=== PATIENT | male | born 1950 | race African-American/Black ===

== ENCOUNTER 2018-07-07 14:40 | Inpatient (IN) | payer MEDICARE ==
[~2018-07-07] VITALS: Ht 172.7 cm; Wt 127.0 kg
[2018-07-07] MEDS ORDERED: FUROSEMIDE 20 MG/2 ML VIAL IVP ONE (15:00)
[2018-07-07] MEDS ORDERED: ONDA4TAB8 PO (15:11)
[2018-07-07] MEDS ORDERED: FLUO-120 PO (15:11)
[2018-07-07] MEDS ORDERED: METF500T6 PO (15:11)
[2018-07-07] MEDS ORDERED: CLON0.1T PO (15:11)
[2018-07-07] MEDS ORDERED: DIGO125T PO (15:11)
[2018-07-07] MEDS ORDERED: FUROSEMIDE 20 MG/2 ML VIAL ONE (15:15)
[2018-07-07 15:16] LABS: BASOPHILS % (AUTO) 0.5 % (0.0-2.0); EOSINOPHILS # (AUTO) 0.2 K/uL (0.0-0.7); EOSINOPHILS % (AUTO) 3.4 % (0.0-7.0); HEMATOCRIT 23.4 % (36.7-47.1); LYMPHOCYTES # (AUTO) 0.5 K/uL (20.0-40.0); LYMPHOCYTES % (AUTO) 8.3 % (20.5-51.5); MEAN CORPUSCULAR HGB CONC 30 g/dL (32.5-36.3); MEAN CORPUSCULAR VOLUME 76.6 fL (73.0-96.2); MONOCYTES # (AUTO) 0.5 K/uL (2.0-10.0); MONOCYTES % (AUTO) 8.2 % (0.0-11.0); NEUTROPHILS # (AUTO) 5.2 K/uL (1.8-8.9); NEUTROPHILS % (AUTO) 79.6 % (38.5-71.5); PLATELET COUNT (AUTO) 88 K/uL (152-348); RED BLOOD CELL COUNT(AUTO) 3.05 MIL/uL (4.06-5.63); WHITE BLOOD COUNT (AUTO) 6.6 K/uL (3.6-10.2)
[2018-07-07] MEDS ORDERED: TEMA15CA PO (15:24)
[2018-07-07] MEDS ORDERED: PRED20TA PO (15:24)
[2018-07-07] MEDS ORDERED: PANT40TA4 PO (15:24)
[2018-07-07] MEDS ORDERED: TAMS-3 PO (15:24)
[2018-07-07] MEDS ORDERED: INSU100V7 SQ (15:24)
[2018-07-07] MEDS ORDERED: SPIR50TA5 PO (15:24)
[2018-07-07] MEDS ORDERED: GABA-534 PO (15:24)
[2018-07-07] MEDS ORDERED: HYDR-3980 PO (15:24)
[2018-07-07] MEDS ORDERED: ATOR20TA PO (15:24)
[2018-07-07] MEDS ORDERED: ISOS30TA6 PO (15:24)
--- NOTE | 2018-07-07 15:34 | NUR ---
HANDS OFF REPORT GIVEN TO AZ SALMERONRN
[2018-07-07 15:36] LABS: BILIRUBIN,DIRECT 0.3 mg/dL (0.0-0.2); BILIRUBIN,TOTAL 0.7 mg/dL (0.2-1.0); CREATININE 1.7 mg/dL (0.6-1.3); POTASSIUM 5.2 mmol/L (3.5-5.1); TOTAL PROTEIN, SERUM 6.2 g/dL (6.4-8.2)
[2018-07-07] MEDS ORDERED: INSULIN REGULAR, HUMAN 1,000 UNITS/10 ML VIAL SUBCUT ONE (16:00)
[2018-07-07] MEDS ORDERED: ASPIRIN 325 MG TABLET PO ONE (16:00)
[2018-07-07] MEDS ORDERED: ASPIRIN 325 MG TABLET ONE (16:05)
[2018-07-07] MEDS ORDERED: INSULIN REGULAR, HUMAN 300 UNIT/3 ML VIAL ONE (16:06)
--- NOTE | 2018-07-07 16:10 | NUR ---
Familia azevedo in [facility] - 07/07/18 at 1658 by [id number] PERINEAL HYGIEN PRIVIDED FOR PT. PT VERY RELUCTANT TO BE CLEANED AND COMPLAINED DURING THE PROCESS.
--- NOTE | 2018-07-07 16:10 | NUR ---
PERINEAL HYGIENE PROVIDED FOR PT. PT RELUCTANT TO BE CLEANED.
[2018-07-07 17:00] LABS: BAND % (MANUAL) 1 % (0-10); LYMPHOCYTES % (MANUAL) 7 % (20-40); NEUTROPHILS % (MANUAL) 84 % (42-75)
[2018-07-07 17:01] LABS: EOSINOPHILS % (MANUAL) 2 % (0-8); MONOCYTES % (MANUAL) 6 % (2-10)
--- NOTE | 2018-07-07 17:45 | NUR ---
ADMIT PT IN RM 207, A 67YO MORBID OBESE PT VIA GURNEY FROM THE ER. PT IS UNCOOPERATIVE AND VERY LETHARGIC. NOTIFIED DR JANSEN OF ADMIT ORDER. NO REPLY YET. ORIENTED TO HIS NAME AND PLACE. SPEECH IS SOMEWHAT UNCLEAR. PLACED ON HEART MONITOR, AFIB WITH NORMAL VENTRICULAR RESPONSE IN THE 70'S.
--- NOTE | 2018-07-07 18:15 | NUR ---
RECHECKED BS TO 527. NO COVERAGE YET AT THIS TIME.
--- NOTE | 2018-07-07 18:45 | NUR ---
SEEN AND EXAMINED BY DR JANSEN, NO ADMIT ORDERS YET.
--- NOTE | 2018-07-07 19:00 | NUR ---
PT REFUSED TO HAVE A FOLEYCATHETER.
[2018-07-07 19:01] VITALS: BP 121/83
[2018-07-07] MEDS ORDERED: FUROSEMIDE 20 MG/2 ML VIAL IV ONE (19:15)
[2018-07-07] MEDS ORDERED: ENALAPRILAT DIHYDRATE INJ 2.5 MG in IV NORMAL SALINE 50 ML IV PRN (19:15)
[2018-07-07] MEDS ORDERED: ACETAMINOPHEN 650 MG SUPP.RECT RC PRN (19:15)
[2018-07-07] MEDS ORDERED: ONDANSETRON 4 MG/2 ML VIAL IV PRN (19:15)
[2018-07-07 19:28] VITALS: BP 127/76
[2018-07-07] MEDS ORDERED: DEXTROSE 50% 50 ML DISP.SYRIN IV PRN (19:30)
--- NOTE | 2018-07-07 19:30 | NUR ---
Report received. Patient is a new admission DX: Hyperglycemia and Anemia. Sleeping, arouses to name. Follows simple commands and oriented to his name only. Speech clear. Reoriented PRN. Assessment completed. With marked edema of legs and scrotum. Unable to move legs due to edema. Incontinent of urine; had Lasix in ER. Attempted to insert Alonzo but unable to.
--- NOTE | 2018-07-07 20:00 | NUR ---
Cplinjaoz=[id number]. Dr. Stark notified. 20 units of Regular Insulin given SQ as per aggressive sliding scale. Plan of care discussed with patient; verbalized understanding. Condom catheter applied; will monitor closely.
[2018-07-07] MEDS: BLOOD SUGAR DIAGNOSTIC 1 EACH STRIP VI SCH ×2 (20:23→23:38)
[2018-07-07] MEDS: INSULIN REGULAR, HUMAN 300 UNIT/3 ML VIAL SQ PRN (20:24)
[2018-07-07 20:31] LABS: ABG BASE EXCESS -4.6 mmol/L; ABG HCO3 20.7 mmol/L; ABG PCO2 38.9 mmHg (35.0-45.0); ABG PH 7.344 (7.350-7.450); ABG SITE LEFT RADIAL; ABG TOTAL HEMOGLOBIN 7.5 G/dL (13.5-18.0); COHb 3.2 % (0.5-1.5); MetHb 0.3 % (0.0-1.5); O2Hb 94.2 % (94.0-97.0); VENT MODE Nasal Cannula
[2018-07-07] MEDS: MORPHINE SULFATE 2 MG/1 ML DISP.SYRIN IV PRN (21:06)
--- NOTE | 2018-07-07 21:06 | NUR ---
Medicated with Morphine IV for generalized discomfort. PM care rendered. Scrotum elevated. Condom catheter remains in place; with clear yellow urine. Specimen sent to lab.
[2018-07-07 21:24] LABS: *BILIRUBIN,URIN NEGATIVE (NEGATIVE); *BLOOD, URINE NEGATIVE (NEGATIVE); *CLARITY,URINE CLEAR (CLEAR); *COLOR,URINE YELLOW (YELLOW); *KETONES,URINE NEGATIVE (NEGATIVE); *PROTEIN,URINE NEGATIVE (NEGATIVE); *UROBILINOGEN,URINE 0.2 E.U./dl (NORMAL); LEUKOCYTE ESTERASE ,URINE NEGATIVE (NEGATIVE); NITRITE, URINE NEGATIVE (NEGATIVE); UGLUCOSE 3+ (NEGATIVE)
[2018-07-07 21:45] LABS: SQUAMOUS EPITHELIAL CELL,UR FEW /HPF (NONE SEEN); URINE AMORPHOUS URATE FEW /HPF; WBC,URINE NONE SEEN /HPF (0-3)
[2018-07-07 23:55] VITALS: BP 132/88
[2018-07-08] MEDS: INSULIN REGULAR, HUMAN 300 UNIT/3 ML VIAL SQ PRN ×4 (00:10→18:09)
--- NOTE | 2018-07-08 00:25 | NUR ---
Patient awake, demanding a sandwich to eat. Spoke to Dr. Brownlee. Order for diabetic diet obtained. Harrison served. Ate well without problems.
[2018-07-08 03:38] VITALS: BP 124/69
[2018-07-08] MEDS: BLOOD SUGAR DIAGNOSTIC 1 EACH STRIP VI SCH ×3 (06:09→18:08)
--- NOTE | 2018-07-08 06:45 | NUR ---
Slept fairly well during the night. VS stable. Latest Accu obhcf=[id number]; sliding scale coverage given. Mildly SOB on exertion.
[2018-07-08 08:00] VITALS: BP 155/107
[2018-07-08 08:01] LABS: EOSINOPHILS # (AUTO) 0.3 K/uL (0.0-0.7)
[2018-07-08 08:11] LABS: MEAN CORPUSCULAR VOLUME 73.7 fL (73.0-96.2)
[2018-07-08 08:13] LABS: BASOPHILS % (AUTO) 0.7 % (0.0-2.0); EOSINOPHILS % (AUTO) 4.6 % (0.0-7.0); HEMATOCRIT 22.9 % (36.7-47.1); LYMPHOCYTES # (AUTO) 0.7 K/uL (20.0-40.0); LYMPHOCYTES % (AUTO) 12.2 % (20.5-51.5); MEAN CORPUSCULAR HEMOGLOBIN 22.4 uug (23.8-33.4); MEAN CORPUSCULAR HGB CONC 30 g/dL (32.5-36.3); MONOCYTES # (AUTO) 0.4 K/uL (2.0-10.0); MONOCYTES % (AUTO) 7.1 % (0.0-11.0); NEUTROPHILS # (AUTO) 4.6 K/uL (1.8-8.9); NEUTROPHILS % (AUTO) 75.4 % (38.5-71.5); PLATELET COUNT (AUTO) 102 K/uL (152-348); WHITE BLOOD COUNT (AUTO) 6.1 K/uL (3.6-10.2)
[2018-07-08 08:44] LABS: CREATININE 1.6 mg/dL (0.6-1.3); POTASSIUM 4.5 mmol/L (3.5-5.1)
[2018-07-08 08:45] LABS: BILIRUBIN,TOTAL 0.6 mg/dL (0.2-1.0); PHOSPHOROUS 3.3 mg/dL (2.5-4.9); TOTAL PROTEIN, SERUM 6.3 g/dL (6.4-8.2); URIC ACID 8.2 mg/dL (3.5-7.2)
[2018-07-08] MEDS ORDERED: FUROSEMIDE 20 MG/2 ML VIAL IV SCH (09:00)
[2018-07-08] MEDS: FLUTICASONE/VILANTEROL 1 EACH BLST.W.DEV INH SCH (09:14)
[2018-07-08] MEDS: PANTOPRAZOLE SODIUM 40 MG VIAL IV SCH (09:14)
[2018-07-08] MEDS: MORPHINE SULFATE 2 MG/1 ML DISP.SYRIN IV PRN ×3 (09:24→21:39)
[2018-07-08 09:53] LABS: THYROID STIMULATING HORMONE 1.459 mIU/mL (0.358-3.740)
[2018-07-08 10:21] LABS: EOSINOPHILS % (MANUAL) 4 % (0-8); LYMPHOCYTES % (MANUAL) 11 % (20-40); MONOCYTES % (MANUAL) 8 % (2-10); NEUTROPHILS % (MANUAL) 77 % (42-75)
[2018-07-08 11:47] VITALS: BP 123/54
--- NOTE | 2018-07-08 14:10 | NUR ---
KAYLYNN IN ROOM TO DO ECHO.
[2018-07-08 16:17] VITALS: BP 123/91
[2018-07-08] MEDS: ALBUTEROL SULFATE 2.5 MG/3 ML NEBU NEB PRN ×2 (18:09→21:47)
[2018-07-08 19:21] VITALS: BP 110/74
--- NOTE | 2018-07-08 20:00 | NUR ---
Pt observed to be sitting up in bed with 3L O2 via NC. All needs attended to. No s/s of acute distress observed at this time. Tele noted to be a-fib with HR at 104. Safe environment implemented at all times. Call light within reach.
[2018-07-08] MEDS: IPRATROPIUM BROMIDE 0.5 MG/2.5 ML NEBU NEB PRN (21:47)
[2018-07-08] MEDS: FUROSEMIDE 20 MG/2 ML VIAL IV SCH (22:59)
--- NOTE | 2018-07-08 23:00 | NUR ---
Received orders from Dr. Yu to tranfuse 1 PRBC's. Pt made aware of plan and consent form signed by patient.
[2018-07-08 23:45] VITALS: BP 136/84
[2018-07-09] VITALS (12 sets, daily range): BP systolic 101–136; BP diastolic 74–88
[2018-07-09] MEDS: BLOOD SUGAR DIAGNOSTIC 1 EACH STRIP VI SCH ×5 (00:11→23:54)
[2018-07-09] MEDS: INSULIN REGULAR, HUMAN 300 UNIT/3 ML VIAL SQ PRN ×5 (00:14→23:48)
--- NOTE | 2018-07-09 01:19 | NUR ---
PRBC transfusing at this time. No anaphylactic/hemolytic reactions noted. Pt tolerating tranfusion rate at 120 ml/hr. Will continue to monitor closely.
[2018-07-09] MEDS: ALBUTEROL SULFATE 2.5 MG/3 ML NEBU NEB PRN ×4 (03:15→22:54)
[2018-07-09] MEDS: IPRATROPIUM BROMIDE 0.5 MG/2.5 ML NEBU NEB PRN ×4 (03:15→22:54)
[2018-07-09] MEDS: MORPHINE SULFATE 2 MG/1 ML DISP.SYRIN IV PRN ×4 (03:53→22:01)
--- NOTE | 2018-07-09 05:40 | NUR ---
Orders to transfuse blood carried out. No reaction, no s/s of acute distress throughout transfusion. Pt made comfortable and kept clean at this time. Pain management provided as ordered. Tele a-fib with HR at 108. Safe environment implemented. Call light within reach.
[2018-07-09 06:06] LABS: VIT D, 25-HYDROXY 14.2 ng/mL (30.0-100.0)
--- NOTE | 2018-07-09 08:20 | NUR ---
INSTRUCTED PATIENT WILL BE NPO FOR LUNCH UNTIL 3PM WHEN HE WILL HAVE ULTRASOUND DONE. PATIENT HAD ALREADY FINISHED EATING BREAKFAST THIS MORNING US TECH AWARE. PATIENT UNDERSTOOD THAT PATIENT WILL NOT EAT OR DRINK INFORMED BAT BOY/GIRL WELL
[2018-07-09] MEDS: PANTOPRAZOLE SODIUM 40 MG VIAL IV SCH (08:42)
[2018-07-09] MEDS: DIGOXIN 125 MCG TABLET PO SCH (08:43)
[2018-07-09] MEDS: FUROSEMIDE 20 MG/2 ML VIAL IV SCH ×2 (08:43→17:33)
[2018-07-09] MEDS: FLUTICASONE/VILANTEROL 1 EACH BLST.W.DEV INH SCH (08:45)
[2018-07-09 10:05] LABS: BASOPHILS # (AUTO) 0.1 K/uL (0.0-8.0); EOSINOPHILS # (AUTO) 0.2 K/uL (0.0-0.7); HEMATOCRIT 24.7 % (36.7-47.1); HEMOGLOBIN 7.6 g/dL (12.5-16.3); MEAN CORPUSCULAR HEMOGLOBIN 23.2 uug (23.8-33.4); MEAN CORPUSCULAR HGB CONC 31 g/dL (32.5-36.3); MEAN CORPUSCULAR VOLUME 75.4 fL (73.0-96.2); MONOCYTES # (AUTO) 0.5 K/uL (2.0-10.0); PLATELET COUNT (AUTO) 86 K/uL (152-348); RED BLOOD CELL COUNT(AUTO) 3.27 MIL/uL (4.06-5.63); WHITE BLOOD COUNT (AUTO) 6.3 K/uL (3.6-10.2)
[2018-07-09 10:28] LABS: LYMPHOCYTES % (AUTO) 10.6 % (20.5-51.5); NEUTROPHILS % (AUTO) 75.5 % (38.5-71.5)
[2018-07-09 10:29] LABS: BASOPHILS % (AUTO) 1.1 % (0.0-2.0); EOSINOPHILS % (AUTO) 3.8 % (0.0-7.0); LYMPHOCYTES # (AUTO) 0.6 K/uL (20.0-40.0); NEUTROPHILS # (AUTO) 4.6 K/uL (1.8-8.9)
[2018-07-09 10:43] LABS: BILIRUBIN,TOTAL 0.8 mg/dL (0.2-1.0); CREATININE 1.7 mg/dL (0.6-1.3); MAGNESIUM 1.9 mg/dL (1.8-2.4); PHOSPHOROUS 3.7 mg/dL (2.5-4.9); POTASSIUM 4.3 mmol/L (3.5-5.1); TOTAL PROTEIN, SERUM 6.2 g/dL (6.4-8.2)
[2018-07-09 10:48] LABS: BASOPHILS % (MANUAL) 1 % (0-2); EOSINOPHILS % (MANUAL) 5 % (0-8); LYMPHOCYTES % (MANUAL) 10 % (20-40); MONOCYTES % (MANUAL) 8 % (2-10); NEUTROPHILS % (MANUAL) 76 % (42-75)
--- NOTE | 2018-07-09 13:00 | NUR ---
ULTRASOUND RESCHEDULED FOR TOMORROW. PATIENT WAS FOUND EATING LUNCH WHILE ALREADY INFORMED THAT HE WAS NOT SUPPOSED TO EAT LUNCH UNTIL AFTER THE PROCEDURE. INFORMED PATIENT VARIOUS TIMES.
--- NOTE | 2018-07-09 13:03 | NUR ---
PT NOT NPO FOR ULTRASOUND AT 0900, TOLD KASSANDRA VILLANUEVA TO PLACE PT NPO AND WILL DO AT 1400. PT ATE LUNCH. PT WILL BE NPO TMRW MORNING.
[2018-07-09 13:21] LABS: *BILIRUBIN,URIN NEGATIVE (NEGATIVE); *BLOOD, URINE NEGATIVE (NEGATIVE); *CLARITY,URINE CLEAR (CLEAR); *COLOR,URINE LIGHT YELLOW (YELLOW); *KETONES,URINE NEGATIVE (NEGATIVE); *PROTEIN,URINE NEGATIVE (NEGATIVE); *UROBILINOGEN,URINE 0.2 E.U./dl (NORMAL); LEUKOCYTE ESTERASE ,URINE NEGATIVE (NEGATIVE); NITRITE, URINE NEGATIVE (NEGATIVE); UGLUCOSE NEGATIVE (NEGATIVE)
[2018-07-09 13:27] LABS: RBC,URINE NONE SEEN /HPF (0-3); WBC,URINE 0-3 /HPF (0-3)
[2018-07-09 13:28] LABS: *CREATININE,URINE 27.2 mg/dL (30-125); *URINE TOTAL PROTEIN RANDOM 12.6 mg/dL (<150/24HR); BACTERIA,URINE FEW /HPF (NONE SEEN); SQUAMOUS EPITHELIAL CELL,UR FEW /HPF (NONE SEEN)
--- NOTE | 2018-07-09 14:20 | NUR ---
RESPIRATORY THERAPY IN UNIT GIVING BREATHING TREATMENT PER PATIENT REQUEST
--- NOTE | 2018-07-09 19:20 | NUR ---
RECEIVED PT AWAKE, ALERT, AND ORIENTEDX4. PT SHOWS NO SIGNS OF DISTRESS. PT IV INTACT AN PATENT. CALL LIGHT WITHIN REACH. BED ALARM ON AND IN LOW POSITION. WILL CONTINUE TO MONITOR.
[2018-07-09] MEDS ORDERED: INSULIN GLARGINE,HUM 300 UNITS/3 ML CARTRIDGE SQ SCH (21:00)
[2018-07-10 04:28] VITALS: BP 108/76
[2018-07-10 05:07] LABS: *OCCULT BLOOD STOOL POSITIVE (NEGATIVE)
[2018-07-10] MEDS: BLOOD SUGAR DIAGNOSTIC 1 EACH STRIP VI SCH ×4 (05:26→23:51)
[2018-07-10] MEDS: INSULIN REGULAR, HUMAN 300 UNIT/3 ML VIAL SQ PRN ×4 (05:34→23:54)
[2018-07-10] MEDS: PANTOPRAZOLE SODIUM 40 MG TABLET.DR PO SCH ×2 (06:19→06:35)
--- NOTE | 2018-07-10 06:19 | NUR ---
PT SLEPT INTERMITTENTLY. PT SHOWS NO SIGNS OF DISTRESS. PT STABLE . PT KEEP ASKING FOR ICE CHIPS . GAVE HIM SOME BUT HE KEEPS FOR ASKING FOR MORE. PT WILL HAVE ABDOMINAL ULTRASOUND AM. PT ANXIOUS. CHARGE NURSE AWARE OF THE PT BEHAVIOR. TOLD HIM THAT HE CAN'T HAVE ANYMORE OF THE ICE CHIPS. PRESCRIBED MEDICATION GIVEN AND PT TOLERATED IT WELL. SAFETY AND COMFORT PROVIDED. WILL ENDORSE TO INCOMING NURSE.
--- NOTE | 2018-07-10 06:34 | NUR ---
HOLD PROTONIX FOR THE PT SINCE PT IS ON NPO. PT KEEP INSISTING ON HAVING HIS ICE CHIPS. PT SHOWS NO SIGNS OF DISTRESS. WILL CONTINUE TO MONITOR.
[2018-07-10 07:02] LABS: EOSINOPHILS # (AUTO) 0.2 K/uL (0.0-0.7); HEMATOCRIT 25.3 % (36.7-47.1); HEMOGLOBIN 7.8 g/dL (12.5-16.3); MEAN CORPUSCULAR HEMOGLOBIN 23.1 uug (23.8-33.4); MEAN CORPUSCULAR HGB CONC 31 g/dL (32.5-36.3); MONOCYTES # (AUTO) 0.6 K/uL (2.0-10.0); NEUTROPHILS # (AUTO) 3.5 K/uL (1.8-8.9); RED BLOOD CELL COUNT(AUTO) 3.37 MIL/uL (4.06-5.63); WHITE BLOOD COUNT (AUTO) 5.1 K/uL (3.6-10.2)
[2018-07-10 07:13] LABS: BILIRUBIN,TOTAL 0.7 mg/dL (0.2-1.0); CREATININE 1.4 mg/dL (0.6-1.3); MAGNESIUM 1.8 mg/dL (1.8-2.4); PHOSPHOROUS 3.9 mg/dL (2.5-4.9); POTASSIUM 4.3 mmol/L (3.5-5.1); TOTAL PROTEIN, SERUM 6.2 g/dL (6.4-8.2)
[2018-07-10] MEDS: IPRATROPIUM BROMIDE 0.5 MG/2.5 ML NEBU NEB PRN ×3 (07:22→21:21)
[2018-07-10] MEDS: ALBUTEROL SULFATE 2.5 MG/3 ML NEBU NEB PRN ×3 (07:22→21:22)
[2018-07-10 07:29] LABS: BASOPHILS # (AUTO) 0.1 K/uL (0.0-8.0); EOSINOPHILS % (AUTO) 3.6 % (0.0-7.0); LYMPHOCYTES # (AUTO) 0.6 K/uL (20.0-40.0); LYMPHOCYTES % (AUTO) 13.1 % (20.5-51.5); MONOCYTES % (AUTO) 11.6 % (0.0-11.0); NEUTROPHILS % (AUTO) 70.7 % (38.5-71.5); PLATELET COUNT (AUTO) 87 K/uL (152-348)
[2018-07-10] MEDS: FUROSEMIDE 20 MG/2 ML VIAL IV SCH (07:55)
[2018-07-10] MEDS: DIGOXIN 125 MCG TABLET PO SCH (07:56)
[2018-07-10] MEDS: CHOLECALCIFEROL 1,000 UNIT TABLET PO SCH (07:56)
[2018-07-10] MEDS: FLUTICASONE/VILANTEROL 1 EACH BLST.W.DEV INH SCH (07:56)
--- NOTE | 2018-07-10 08:00 | NUR ---
Pt. alert and oriented x 3 forgetful. Pt in no acute distress. Discussed plan of care with patient re fluid restriction and NPO status for JULIAN. Pt agreeable with plan of care. Call light is within reach.
[2018-07-10 09:19] LABS: BASOPHILS % (MANUAL) 1 % (0-2); EOSINOPHILS % (MANUAL) 6 % (0-8); LYMPHOCYTES % (MANUAL) 12 % (20-40); MONOCYTES % (MANUAL) 10 % (2-10); NEUTROPHILS % (MANUAL) 71 % (42-75)
[2018-07-10 11:10] VITALS: BP 108/72
[2018-07-10] MEDS ORDERED: FUROSEMIDE 20 MG/2 ML VIAL IV PRN (11:15)
[2018-07-10] MEDS: SOD FERRIC GLUC COMPLX/SUCROSE 125 MG in IV NORMAL SALINE 100 ML IV SCH (13:36)
[2018-07-10] MEDS: FUROSEMIDE 40 MG/4 ML VIAL IVP SCH ×3 (14:15→21:23)
[2018-07-10 15:30] VITALS: BP 107/80
--- NOTE | 2018-07-10 16:30 | NUR ---
Blood bank called that blood is ready. Pt refusing to have blood started. "I want to have my dinner first before you start the blood transfusion". Pt is in no acute distress. Call light is within reach.
[2018-07-10] MEDS ORDERED: FUROSEMIDE 20 MG/2 ML VIAL IV SCH (17:00)
--- NOTE | 2018-07-10 18:01 | NUR ---
PT states "Im still eating." PT breathing is less labored. HHN txs and Lasix given earlier effective. Call light is within reach. No fall noted this shift.
[2018-07-10] MEDS ORDERED: FLUTICASONE/VILANTEROL 1 EACH BLST.W.DEV INH SCH (18:15)
[2018-07-10] MEDS: methylPREDNISolone SOD SUCC 40 MG/ML VIAL IV SCH ×2 (18:17→21:23)
--- NOTE | 2018-07-10 19:30 | NUR ---
RECEIVED PT AWAKE, ALERT,AND ORIENTEDX2. PT DOESN'T KNOW WHERE HE IS. FORGETFUL AT TIMES. PT NEEDS REORIENTATION.PT SHOWS NO SIGNS OF DISTRESS . CALL LIGHT WITHIN REACH. SAFETY AND COMFORT PROVIDED. WILL CONTINUE TO MONITOR.
[2018-07-10 20:00] VITALS: BP 122/89
--- NOTE | 2018-07-10 20:44 | NUR ---
PT VERY AGITATED. PT YELLING. CALLED DR. JANSEN. HE ORDERED ATIVAN 0.5IV Q6H PRN. CHARGE NURSE AWARE. PT SAFETY PROVIDED. PT VITAL SIGNS WITHIN NORMAL LIMIT. WILL CONTINUE TO MONITOR.
[2018-07-10] MEDS ORDERED: INSULIN GLARGINE,HUM 300 UNITS/3 ML CARTRIDGE SQ SCH (21:00)
[2018-07-10] MEDS: LORAZEPAM 2 MG/1 ML VIAL IV PRN (21:26)
[2018-07-11] VITALS (8 sets, daily range): BP systolic 128–140; BP diastolic 84–93
--- NOTE | 2018-07-11 03:11 | NUR ---
PT TOLERATED BLOOD TRANSFUSION. PT AFEBRILE AND NO SHORTNESS OF BREATH NOTED. VITAL SIGNS WITHIN NORMAL LIMIT. PT STABLE. CALL LIGHT WITHIN REACH. BED ALARM ON. SAFETY AND COMFORT PROVIDED. WILL CONTINUE TO MONITOR.
[2018-07-11] MEDS: PANTOPRAZOLE SODIUM 40 MG TABLET.DR PO SCH (06:07)
[2018-07-11] MEDS: FUROSEMIDE 40 MG/4 ML VIAL IVP SCH ×2 (06:08→14:38)
[2018-07-11] MEDS: methylPREDNISolone SOD SUCC 40 MG/ML VIAL IV SCH ×2 (06:08→14:37)
[2018-07-11] MEDS: INSULIN REGULAR, HUMAN 300 UNIT/3 ML VIAL SQ PRN ×2 (06:43→11:14)
[2018-07-11] MEDS: BLOOD SUGAR DIAGNOSTIC 1 EACH STRIP VI SCH ×2 (06:49→11:12)
[2018-07-11 06:50] LABS: CREATININE 1.5 mg/dL (0.6-1.3); POTASSIUM 5.1 mmol/L (3.5-5.1)
[2018-07-11 06:52] LABS: BASOPHILS % (AUTO) 0.3 % (0.0-2.0); LYMPHOCYTES # (AUTO) 0.2 K/uL (20.0-40.0); LYMPHOCYTES % (AUTO) 5.7 % (20.5-51.5); MEAN CORPUSCULAR HEMOGLOBIN 23.3 uug (23.8-33.4); MEAN CORPUSCULAR HGB CONC 31 g/dL (32.5-36.3); MEAN CORPUSCULAR VOLUME 75.8 fL (73.0-96.2); MONOCYTES # (AUTO) 0.1 K/uL (2.0-10.0); MONOCYTES % (AUTO) 1.7 % (0.0-11.0); NEUTROPHILS # (AUTO) 2.8 K/uL (1.8-8.9); NEUTROPHILS % (AUTO) 92.3 % (38.5-71.5); PLATELET COUNT (AUTO) 80 K/uL (152-348); RED BLOOD CELL COUNT(AUTO) 3.86 MIL/uL (4.06-5.63); WHITE BLOOD COUNT (AUTO) 3.1 K/uL (3.6-10.2)
[2018-07-11 07:55] LABS: HEMATOCRIT 29.3 % (36.7-47.1)
[2018-07-11] MEDS: CHOLECALCIFEROL 1,000 UNIT TABLET PO SCH (08:13)
[2018-07-11] MEDS: DIGOXIN 125 MCG TABLET PO SCH (08:14)
[2018-07-11] MEDS: FLUTICASONE/VILANTEROL 1 EACH BLST.W.DEV INH SCH (08:14)
[2018-07-11] MEDS: LORAZEPAM 2 MG/1 ML VIAL IV PRN (08:14)
[2018-07-11] MEDS: ALBUTEROL SULFATE 2.5 MG/3 ML NEBU NEB PRN ×2 (08:51→14:10)
[2018-07-11] MEDS: IPRATROPIUM BROMIDE 0.5 MG/2.5 ML NEBU NEB PRN ×2 (08:51→14:10)
[2018-07-11 10:09] LABS: LYMPHOCYTES % (MANUAL) 5 % (20-40); MONOCYTES % (MANUAL) 1 % (2-10); NEUTROPHILS % (MANUAL) 94 % (42-75)
[2018-07-11] MEDS ORDERED: ALBU2.5V7 NEB (13:51)
[2018-07-11] MEDS ORDERED: FLUT1BLS INH (13:51)
[2018-07-11] MEDS ORDERED: INSU100V7 SQ (13:51)
[2018-07-11] MEDS ORDERED: IPRA0.2S6 NEB (13:51)
[2018-07-11] MEDS ORDERED: TAMS-3 PO (13:51)
[2018-07-11] MEDS: SOD FERRIC GLUC COMPLX/SUCROSE 125 MG in IV NORMAL SALINE 100 ML IV SCH (14:38)
--- NOTE | 2018-07-11 16:00 | NUR ---
Discharge instructions given to patient. Pt is in no acute distress. IV taken off. Pharmacy education given. Report given to EMT. Pt to f/u with PMD within 1 week.
[2018-07-13 10:11] LABS: ALBUMIN 2.8 g/dL (2.9-4.4); ALPHA-1-GLOBULIN 0.2 g/dL (0.0-0.4); ALPHA-2-GLOBULIN 0.5 g/dL (0.4-1.0); BETA GLOBULIN 0.7 g/dL (0.7-1.3); GAMMA GLOBULIN 1.4 g/dL (0.4-1.8); GLOBULIN, TOTAL 2.8 g/dL (2.2-3.9); M-SPIKE 0.5 g/dL (Not Observed)
== END 2018-07-11 14:10 | DRG 280 ==
LOC: ER 14:43 → TELE 16:45 → MED 07-09 11:29
PROVIDERS: ADMIT Nurse Practitioner Acute Care; ATTEND Internal Medicine
PROC: 30233N1 Transfusion of Nonautologous Red Blood Cells into Peripheral Vein, Percutaneous Approach (ICD-10-PCS; principal; 2018-07-09)
DX: I13.0 Hypertensive heart and chronic kidney disease with heart failure and stage 1 through stage 4 chronic kidney disease, or unspecified chronic kidney disease (principal); I50.43 Acute on chronic combined systolic (congestive) and diastolic (congestive) heart failure; I21.A1 Myocardial infarction type 2; G93.40 Encephalopathy, unspecified; N17.0 Acute kidney failure with tubular necrosis; Z68.41 Body mass index [BMI] 40.0-44.9, adult; E44.0 Moderate protein-calorie malnutrition; D68.59 Other primary thrombophilia; J44.1 Chronic obstructive pulmonary disease with (acute) exacerbation; K92.1 Melena; R18.8 Other ascites; R16.1 Splenomegaly, not elsewhere classified; I42.0 Dilated cardiomyopathy; E11.22 Type 2 diabetes mellitus with diabetic chronic kidney disease; E11.65 Type 2 diabetes mellitus with hyperglycemia; F17.211 Nicotine dependence, cigarettes, in remission; N18.9 Chronic kidney disease, unspecified; E66.01 Morbid (severe) obesity due to excess calories; Z71.3 Dietary counseling and surveillance; N50.89 Other specified disorders of the male genital organs; I48.2 Chronic atrial fibrillation; D69.6 Thrombocytopenia, unspecified; I50.814 Right heart failure due to left heart failure; I08.1 Rheumatic disorders of both mitral and tricuspid valves; Z91.11 Patient's noncompliance with dietary regimen; Z79.84 Long term (current) use of oral hypoglycemic drugs; Z74.09 Other reduced mobility; N40.0 Benign prostatic hyperplasia without lower urinary tract symptoms; D63.1 Anemia in chronic kidney disease; D50.0 Iron deficiency anemia secondary to blood loss (chronic); I25.10 Atherosclerotic heart disease of native coronary artery without angina pectoris; E78.5 Hyperlipidemia, unspecified; I27.20 Pulmonary hypertension, unspecified; Z79.899 Other long term (current) drug therapy; Z91.14 Patient's other noncompliance with medication regimen; G47.00 Insomnia, unspecified; G31.84 Mild cognitive impairment of uncertain or unknown etiology; K74.60 Unspecified cirrhosis of liver; E11.42 Type 2 diabetes mellitus with diabetic polyneuropathy; M19.90 Unspecified osteoarthritis, unspecified site
CPT/HCPCS: 36415; 36600; 70030-TC; 71045; 76700; 82306; 82378; 83550; 83690; 83735; 83970; 84100; 84153; 84155; 84156; 84165; 84300; 84443; 84550; 85025; 85610; 85730; 86803; 86850; 86900; 86901; 86920; 87086; 93005; 93307; 94640; 94664; A4663; C9113; J1815; J1940; J2060; J2270; J2916; J2920; J3490; J3590; J7040; P9016-BL; P9021